=== PATIENT | female | born 1975 | race Caucasian/White ===

== ENCOUNTER → 2016-05-21 | Outpatient (CLI) | payer BC | LOC: MC.RAD 09:40 | DX: Z12.31 Encounter for screening mammogram for malignant neoplasm of breast (principal) ==

== ENCOUNTER → 2016-07-22 | Outpatient (REF) | LOC: WSOH 09:45 | DX: Z02.89 Encounter for other administrative examinations (principal) ==

== ENCOUNTER → 2017-04-13 | Outpatient (CLI) | payer BC | LOC: COL.RAD 14:28 | DX: I82.611 Acute embolism and thrombosis of superficial veins of right upper extremity (principal); I26.99 Other pulmonary embolism without acute cor pulmonale; J98.11 Atelectasis | CPT/HCPCS: Q9967 ==

== ENCOUNTER → 2017-04-13 | Outpatient (CLI) | payer BC | LOC: COL.VAS 12:36 | DX: I82.612 Acute embolism and thrombosis of superficial veins of left upper extremity (principal); R07.89 Other chest pain ==

== ENCOUNTER → 2017-09-23 | Outpatient (CLI) | payer BC | LOC: MC.RAD 07:00 | DX: Z12.31 Encounter for screening mammogram for malignant neoplasm of breast (principal) ==

== ENCOUNTER → 2018-01-31 | Outpatient (CLI) | payer BC | LOC: COL.VAS 12-30 10:30 | DX: I26.99 Other pulmonary embolism without acute cor pulmonale (principal) | CPT/HCPCS: Q9967 ==

== ENCOUNTER → 2018-10-05 | Outpatient (CLI) | payer BC | LOC: MC.RAD 07:15 | DX: Z12.31 Encounter for screening mammogram for malignant neoplasm of breast (principal); N64.89 Other specified disorders of breast ==

== ENCOUNTER → 2018-10-10 | Outpatient (CLI) | payer BC | LOC: MC.RAD 13:55 | DX: N64.89 Other specified disorders of breast (principal) | CPT/HCPCS: G0279 ==

== ENCOUNTER → 2019-03-26 | Outpatient (CLI) | payer BC | LOC: COL.LAB 12:33 | DX: Z01.89 Encounter for other specified special examinations (principal) ==

== ENCOUNTER → 2019-10-15 | Outpatient (CLI) | payer BC | LOC: MC.RAD 17:50 | DX: Z12.31 Encounter for screening mammogram for malignant neoplasm of breast (principal) ==

== ENCOUNTER → 2021-02-26 | Outpatient (CLI) | payer BC | LOC: MC.RAD 07:53 | DX: Z12.31 Encounter for screening mammogram for malignant neoplasm of breast (principal) ==

== ENCOUNTER → 2021-10-19 | Outpatient (CLI) | payer BC | LOC: COL.RAD 12:55 | DX: R93.89 Abnormal findings on diagnostic imaging of other specified body structures (principal); R10.2 Pelvic and perineal pain | CPT/HCPCS: Q9967 ==